=== PATIENT | female | born 1955 | race Two or more races ===

== ENCOUNTER 2020-05-28 11:09 | Outpatient (CLI) | payer OTHER ==
[2020-05-28] MEDS ORDERED: CIPRODEX OTIC7.5 ML OT (17:45)
== END 2020-05-28 16:36 | disposition home or self-care (01) ==
LOC: OFIC 805 11:09
PROVIDERS: ATTEND Otolaryngology
DX: H92.03 Otalgia, bilateral (principal)

== ENCOUNTER 2020-06-02 14:20 | Outpatient (CLI) | payer OTHER ==
[~2020-06-02 14:20] MED LIST: CIPRODEX OTIC7.5 ML OT
== END 2020-06-02 16:51 | disposition home or self-care (01) ==
LOC: OFIC 805 14:20 → EDBD 14:20 → OFIC 805 16:51
PROVIDERS: ATTEND Otolaryngology
DX: H92.02 Otalgia, left ear (principal); R42 Dizziness and giddiness; H60.8X2 Other otitis externa, left ear

== ENCOUNTER 2020-06-11 11:03 | Outpatient (CLI) | payer OTHER | END 2020-06-11 12:03 | disposition home or self-care (01) | LOC: OFIC 805 11:03 → EDBD 11:03 → OFIC 805 11:30 | PROVIDERS: ATTEND Otolaryngology | DX: H92.02 Otalgia, left ear (principal); R42 Dizziness and giddiness ==

== ENCOUNTER 2020-06-11 12:39 | Outpatient (CLI) | payer OTHER | END 2020-06-11 13:57 | disposition home or self-care (01) | LOC: EDBD 12:39 → LAB 12:39 | PROVIDERS: ATTEND Otolaryngology | DX: H92.02 Otalgia, left ear (principal) ==